=== PATIENT | male | born 1985 | race Caucasian/White ===

== ENCOUNTER 2016-07-21 23:47 | Emergency (ER) | payer OTHER, SELFPAY ==
[~2016-07-21] VITALS: Ht 185.4 cm; Wt 86.2 kg
--- NOTE | 2016-07-22 01:40 | REPUSA ---
CLINICAL HISTORY: Neck pain. TECHNIQUE: Multiple axial images were obtained through the cervical spine. Images were also reconstru cted in coronal and sagittal planes. The study was performed without IV contrast. COMMENTS: There is no fracture or spondylolisthesis visualized. The paraspinal soft tissues are unremarkable. T here are no lytic or blastic lesions. Straightening of cervical lordosis is seen, suggesting muscular spasm. There is evidence of minimal m ultilevel disk disease, demonstrated by minimal osteophytosis and endplate sclerosis. No significant disk herniation is noted at any level. Canal and foramina remain patent. IMPRESSION: 1. No fracture or spondylolisthesis. 2. Straightening of cervical lordosis is seen, suggesting muscular spasm. 3. Minimal multilevel spondylosis. Thank you for your kind referral of this patient.
[2016-07-22 01:52] LABS: METHADONE URINE NEGATIVE (NEGATIVE)
[2016-07-22] MEDS ORDERED: KETOROLAC TROMETHAMINE 10 MG TAB PO ONE (02:00)
[2016-07-22 02:36] VITALS: BP 162/75
== END 2016-07-22 02:48 | disposition left against medical advice (07) ==
LOC: EDBD 23:47 → M ED 07-22 00:25
DX: F10.129 Alcohol abuse with intoxication, unspecified (principal); S00.93XA Contusion of unspecified part of head, initial encounter; W21.89XA Striking against or struck by other sports equipment, initial encounter; Y92.9 Unspecified place or not applicable; Y93.44 Activity, trampolining; Y99.9 Unspecified external cause status; Z88.6 Allergy status to analgesic agent
CPT/HCPCS: 70450; 72125; 80306; 99284; G0480

== ENCOUNTER 2016-09-10 15:31 | Emergency (ER) | payer OTHER, SELFPAY ==
[~2016-09-10] VITALS: Ht 185.4 cm; Wt 63.0 kg
[2016-09-10 18:03] VITALS: BP 164/75
--- NOTE | 2016-09-10 18:07 | REP ---
Left hand, complete: 09/10/2016. No prior study. Clinical History: Trauma. Pain mid left hand. Findings: There is an oblique fracture of the mid to proximal shaft of the third metacarpal with a cortex width displacement of distal fragment dorsally and towards the ulna. No angulation. There is no intra-articular component at the CMC joint. The other metacarpals, MCP joints, CMC joints, carpal bones, distal radius, ulna, and phalanges are all intact. Prominent soft tissue swelling dorsal wrist. Impression: 1. Oblique fracture mid to proximal shaft of the third metacarpal without intra-articular extension. Prominent soft tissue swelling. No other bony finding. Signed by Curtis Dumont MD 09/10/2016 09:26 P
== END 2016-09-10 18:20 | disposition home or self-care (01) ==
LOC: M ED 15:31
DX: S62.353A Nondisplaced fracture of shaft of third metacarpal bone, left hand, initial encounter for closed fracture (principal); W18.30XA Fall on same level, unspecified, initial encounter; Y92.830 Public park as the place of occurrence of the external cause; Y93.61 Activity, american tackle football; Y99.9 Unspecified external cause status; M41.9 Scoliosis, unspecified; F17.200 Nicotine dependence, unspecified, uncomplicated; Z88.6 Allergy status to analgesic agent

== ENCOUNTER 2020-11-02 03:36 | Inpatient (IN) | payer OTHER, SELFPAY ==
[2020-11-02] VITALS (7 sets, daily range): BP systolic 149–158; BP diastolic 90–95
[~2020-11-02] VITALS: Ht 185.4 cm; Wt 97.6 kg
[2020-11-02] MEDS ORDERED: ONDANSETRON 4MG/2ML VIAL IV ONE (04:10)
[2020-11-02] MEDS ORDERED: NS 1,000 ML IV ONE ×2 (04:10→06:30)
[2020-11-02] MEDS ORDERED: ISOVUE-370 76% 100ML VIAL As Ordered ONE (04:26)
[2020-11-02 04:35] LABS: BASO # 0.1 10^3/uL (0.0-0.2); BASO % 1.2 % (0.0-1.0); EOS # 0.6 10^3/uL (0.0-0.5); EOS % 5.5 % (0.0-3.0); HEMATOCRIT 53.5 % (42.0-52.0); LYMPH # 4.2 10^3/uL (1.5-5.0); LYMPH % 40.8 % (24.0-44.0); MEAN CORPUSCULAR HEMOGLOBIN 33.2 pg (27.0-33.0); MEAN CORPUSCULAR HGB CONC 35.5 g/dl (32.0-36.5); MEAN CORPUSCULAR VOLUME 93.5 fl (80.0-96.0); MONO # 0.6 10^3/uL (0.0-0.8); NEUTROPHILS # 4.7 10^3/uL (1.5-8.5); NEUTROPHILS % 46.3 % (36.0-66.0); PLATELET COUNT, AUTOMATED 245 10^3/uL (150-450); RED BLOOD COUNT 5.72 10^6/uL (4.30-6.10); WHITE BLOOD COUNT 10.2 10^3/uL (4.0-10.0)
[2020-11-02] MEDS: MORPHINE 4 MG/ML 1ML VIAL/SYRINGE (J2270) IV PRN ×2 (04:41→05:42)
--- NOTE | 2020-11-02 04:54 | REPVR ---
PROCEDURE INFORMATION: Exam: XR Chest Exam date and time: 11/02/2020 4:32 AM Age: 35 years old Clinical indication: Cough TECHNIQUE: Imaging protocol: XR of the chest. Views: 1 view. COMPARISON: CT Spine,cervical w/o contrast 07/22/2016 12:51 AM FINDINGS: Lungs: Unremarkable. No consolidation. Pleural spaces: Unremarkable. No pleural effusion. No pneumothorax. Heart/Mediastinum: Unremarkable. No cardiomegaly. Bones/joints: Unremarkable. IMPRESSION: No acute findings. Electronically signed by: Trent Rodgers On 11/02/2020 04:54:00 AM
[2020-11-02 04:59] LABS: ALBUMIN 3.9 GM/DL (3.2-5.2); BILIRUBIN,DIRECT 0.2 MG/DL (0.0-0.2); BILIRUBIN,TOTAL 0.5 MG/DL (0.2-1.0); TOTAL PROTEIN 7.4 GM/DL (6.4-8.2)
--- NOTE | 2020-11-02 05:28 | REPVR ---
PROCEDURE INFORMATION: Exam: CT Abdomen And Pelvis With Contrast Exam date and time: 11/02/2020 4:09 AM Age: 35 years old Clinical indication: Pain and injury or trauma; Fall; Blunt; Luq; Abdominal pain; Flank; Left; Additional info: Left sided abd pain TECHNIQUE: Imaging protocol: Computed tomography of the abdomen and pelvis with contrast. Radiation optimization: All CT scans at this facility use at least one of these dose optimization techniques: automated exposure control; mA and/or kV adjustment per patient size (includes targeted exams where dose is matched to clinical indication); or iterative reconstruction. Contrast material: ISO; Contrast volume: 100 ml; Contrast route: INTRAVENOUS (IV); COMPARISON: CR Hip,AP,LAT to include Pelvis 04/03/2015 1:06 PM FINDINGS: Liver: Hepatomegaly and steatosis. Gallbladder and bile ducts: Normal. No calcified stones. No ductal dilation. Pancreas: Normal. No ductal dilation. Spleen: Normal. No splenomegaly. Adrenal glands: Normal. No mass. Kidneys and ureters: Normal. No hydronephrosis. Stomach and bowel: Unremarkable. No obstruction. No mucosal thickening. Appendix: No evidence of appendicitis. Intraperitoneal space: Unremarkable. No free air. No significant fluid collection. Vasculature: Atherosclerotic disease of the abdominal aorta. Lymph nodes: Unremarkable. No enlarged lymph nodes. Urinary bladder: Distended urinary bladder. Reproductive: Unremarkable as visualized. Bones/joints: Mild anterolisthesis of L5 on S1 secondary to bilateral L5 pars interarticularis defects. Mild multilevel degenerative disease and facet arthropathy of the lumbar spine. Mild levoscoliosis. Soft tissues: Unremarkable. IMPRESSION: No acute fractures or evidence of solid organ injury. Hepatomegaly and steatosis. Electronically signed by: Trent Rodgers On 11/02/2020 05:28:28 AM
[2020-11-02] MEDS ORDERED: LORazepam 2 MG TAB PO PRN ×2 (06:40→08:25)
[2020-11-02] MEDS ORDERED: THIAMINE 100 MG TAB PO SCH (06:41)
[2020-11-02] MEDS ORDERED: ONDANSETRON 4MG/2ML VIAL IV PRN (07:50)
[2020-11-02] MEDS ORDERED: MULTIVITAMINS/MINERALS THERAP 1 TAB PO SCH (09:00)
[2020-11-02] MEDS ORDERED: OXAZEPAM 10 MG CAP PO SCH (09:00)
[2020-11-02] MEDS ORDERED: FOLIC ACID 1 MG TAB PO SCH (09:00)
[2020-11-02] MEDS ORDERED: MULTIVITAMIN -ADULT INJECTION 10 ML, THIAMINE INJection 100 MG, FOLIC ACID 1 MG in NS 1... IV SCH (09:00)
[2020-11-02 09:22] LABS: RSV AMPLIFICATION NEGATIVE (NEGATIVE)
[2020-11-02] MEDS ORDERED: HOME MED LIST COMPLETE! XX SCH (09:40)
[2020-11-02] MEDS: PANTOPRAZOLE 40MG VIAL (C9113 PER 1) IV SCH ×2 (10:26→20:18)
[2020-11-02] MEDS: ENOXAPARIN 40MG/0.4ML SYRINGE (J1650 PER 10MG) SC SCH (10:26)
[2020-11-02] MEDS: LR 1,000 ML IV SCH ×2 (11:50→21:33)
--- NOTE | 2020-11-02 12:05 | HPEPDOC ---
General Date of Admission Nov 02, 2020 at 07:46 Date of Service: Nov 02, 2020 Chief Complaint The patient is a 35-year-old male admitted with a reason for visit of Acute Alcoholic Pancreatitis, Alcohol Intoxication. Source: Patient History of Present Illness 35-year-old male heavy alcohol drinker presented to the emergency room with 2 days history of abdominal pain. Last night while he went to the bathroom he had such a severe episode of pain that he almost passed out that is why his girlfriend called the ambulance and made him come to the emergency room. Patient denies any recent falls or trauma or any fights. The pain is located in the left flank and lower lateral chest wall, sharp aching in nature feels like he got punched, rates the pain as 8 /10 in intensity without any radiation. Work-up in the ED showed mild elevation of lipase of 675. His alcohol level was 0.242. He had mild transaminitis, and a creatinine of 1.5. His hemoglobin was 19. He had a CT scan of the abdomen and pelvis was negative for any acute events. It did show hepatomegaly and steatosis. Patient was admitted for possible alcoholic pancreatitis versus musculoskeletal pain with the severe dehydration and KARLENE. 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 Dyspnea, Lt Headedness Gastrointestinal: Reports: Abdominal Pain; Denies: Nausea, Vomiting, Diarrhea Genitourinary: Denies: Dysuria, Frequency, Incontinence, Retention Hematologic: Denies: Bruising, Bleeding Excessively Neurological: Denies: Weakness, Numbness, Change in speech, Confusion Physical Examination General Exam: Positive: Alert, Cooperative, No Acute Distress Eye Exam: Positive: PERRLA, Conjunctiva & lids normal, EOMI; Negative: Sclera icteric ENT Exam: Positive: Atraumatic, Mucous membr. moist/pink, Pharynx Normal Neck Exam: Positive: Supple; Negative: JVD, thyromegaly Chest Exam: Positive: Clear to auscultation, Normal air movement Heart Exam: Positive: Rate Normal, Regular Rhythm, Normal S1, Normal S2; Negative: Murmurs, Rubs Abdomen Exam: Positive: Normal bowel sounds, Soft, Tenderness (Left upper quadrant and left lateral lower chest wall); Negative: Hepatospenomegaly Extremity Exam: Negative: Clubbing, Cyanosis, Edema Skin Exam: Positive: Nl turgor and temperature; Negative: Breakdown, Lesion Neuro Exam: Positive: Other (Tremors) Psych Exam: Positive: Memory Intact, Oriented x 3 Vital Signs Vital Signs Date Time Temp Pulse Resp B/P (MAP) Pulse Ox O2 Delivery O2 Flow Rate FiO2 11/02/20 10:30 98.4 98 18 158/90 (112) 95 Room Air Laboratory Data Labs 24H Laboratory Tests 2 11/02/20 04:15: Immature Granulocyte % (Auto) 0.2, Neutrophils (%) (Auto) 46.3, Lymphocytes (%) (Auto) 40.8, Monocytes (%) (Auto) 6.0, Eosinophils (%) (Auto) 5.5H, Basophils (%) (Auto) 1.2H, Neutrophils # (Auto) 4.7, Lymphocytes # (Auto) 4.2, Monocytes # (Auto) 0.6, Eosinophils # (Auto) 0.6H, Basophils # (Auto) 0.1, Nucleated Red Blood Cells % (auto) 0.0, Lactic Acid Level 2.9*H, Total Bilirubin 0.5, Direct Bilirubin 0.2, Aspartate Amino Transf (AST/SGOT) 58H, Alanine Aminotransferase (ALT/SGPT) 117H, Alkaline Phosphatase 93, Total Protein 7.4, Albumin 3.9, Albumin/Globulin Ratio 1.1, Lipase 676H, Ethyl Alcohol Level 0.242H 11/02/20 08:08: Coronavirus (COVID-19)(PCR) NEGATIVE, Influenza Type A (RT-PCR) NEGATIVE, Influenza Type B (RT-PCR) NEGATIVE, Respiratory Syncytial Virus (PCR) NEGATIVE 11/02/20 09:21: Lactic Acid Followup at 4 Hours 1.6 CBC/BMP Laboratory Tests 11/02/20 04:15 Assessment/Plan 35-year-old male heavy alcohol drinker presented to the emergency room with 2 days history of abdominal pain. Last night while he went to the bathroom he had such a severe episode of pain that he almost passed out that is why his girlfriend called the ambulance and made him come to the emergency room. Patie nt denies any recent falls or trauma or any fights. The pain is located in the left flank and lower lateral chest wall, sharp aching in nature feels like he got punched, rates the pain as 8 /10 in intensity without any radiation. Work- up in the ED showed mild elevation of lipase of 675. His alcohol level was 0.242. He had mild transaminitis, and a creatinine of 1.5. His hemoglobin was 19. He had a CT scan of the abdomen and pelvis was negative for any acute events. It did show hepatomegaly and steatosis. Patient was admitted for possible alcoholic pancreatitis versus musculoskeletal pain with the severe dehydration and KARLENE. Abdominal pain/lower chest wall pain Acute pancreatitis versus musculoskeletal pain Pain control with tramadol IV fluid, pantoprazole, clear liquid diet Advance diet as tolerated Alcohol intoxication Will place the patient on Serax and CIWA protocol Will give banana bag daily Dehydration with lactic acidosis Hemoglobin of 19. Due to alcohol use Will give IV fluid KARLENE Creatinine of 1.5 Due to dehydration Continue IV fluids Plan / VTE VTE Prophylaxis Ordered?: Yes Danitza White MD Nov 02, 2020 12:05
[2020-11-02] MEDS: traMADol 50 MG TAB PO PRN ×2 (12:58→21:34)
--- NOTE | 2020-11-02 13:24 | REP ---
INDICATION: Left lower lateral chest wall pain. NO HISTORY OF TRAUMA COMPARISON: None. TECHNIQUE: Four views FINDINGS: There is no evidence of an acute fracture or destructive osseous lesion. IMPRESSION: Negative exam <Electronically signed by Chance John > 11/02/20 [id number]
[2020-11-02] MEDS: OXAZEPAM 10 MG CAP PO SCH ×2 (16:45→20:18)
[2020-11-03] VITALS (7 sets, daily range): BP systolic 149–202; BP diastolic 92–138
[2020-11-03] MEDS ORDERED: amLODIPine 5 MG TAB PO ONE (04:30)
[2020-11-03 05:17] LABS: BASO # 0.1 10^3/uL (0.0-0.2); BASO % 0.9 % (0.0-1.0); EOS # 0.5 10^3/uL (0.0-0.5); EOS % 5.2 % (0.0-3.0); HEMATOCRIT 51.4 % (42.0-52.0); HEMOGLOBIN 17.5 g/dl (13.5-17.5); LYMPH % 41.1 % (24.0-44.0); MEAN CORPUSCULAR HEMOGLOBIN 32.8 pg (27.0-33.0); MEAN CORPUSCULAR VOLUME 96.3 fl (80.0-96.0); MONO # 0.7 10^3/uL (0.0-0.8); MONO % 7.5 % (2.0-8.0); NEUTROPHILS # 4.3 10^3/uL (1.5-8.5); NEUTROPHILS % 45.1 % (36.0-66.0); PLATELET COUNT, AUTOMATED 230 10^3/uL (150-450); RED BLOOD COUNT 5.34 10^6/uL (4.30-6.10); WHITE BLOOD COUNT 9.6 10^3/uL (4.0-10.0)
[2020-11-03 05:46] LABS: ALBUMIN 3.7 GM/DL (3.2-5.2); ALT/SGPT 102 U/L (12-78); BILIRUBIN,DIRECT 0.2 MG/DL (0.0-0.2); BILIRUBIN,TOTAL 0.9 MG/DL (0.2-1.0); BLOOD UREA NITROGEN 12 MG/DL (7-18); CALCIUM LEVEL 8.7 MG/DL (8.5-10.1); CARBON DIOXIDE LEVEL 28 MEQ/L (21-32); CHLORIDE LEVEL 103 MEQ/L (98-107); CREATININE FOR GFR 0.97 MG/DL (0.70-1.30); GLOMERULAR FILTRATION RATE > 60.0 (>60); GLUCOSE, FASTING 89 MG/DL (70-100); LIPASE 169 U/L (73-393); POTASSIUM SERUM 4.1 MEQ/L (3.5-5.1); SODIUM LEVEL 138 MEQ/L (136-145); TOTAL PROTEIN 6.8 GM/DL (6.4-8.2)
[2020-11-03] MEDS ORDERED: hydrALAZINE 20MG/ML 1ML VIAL (J0360 PER 20MG) IV ONE (06:35)
[2020-11-03] MEDS ORDERED: MULTIVITAMIN -ADULT INJECTION 10 ML, THIAMINE INJection 100 MG, FOLIC ACID 1 MG in NS 1... IV SCH ×2 (06:40→11:00)
[2020-11-03] MEDS ORDERED: **hydrALAZINE** 10 MG TAB PO ONE (06:45)
[2020-11-03] MEDS ORDERED: cloNIDine 0.1MG TABLET PO ONE (08:30)
[2020-11-03] MEDS: PANTOPRAZOLE 40MG VIAL (C9113 PER 1) IV SCH ×2 (08:48→20:13)
[2020-11-03] MEDS: OXAZEPAM 10 MG CAP PO SCH ×3 (08:48→20:14)
[2020-11-03] MEDS: ENOXAPARIN 40MG/0.4ML SYRINGE (J1650 PER 10MG) SC SCH (08:48)
[2020-11-03] MEDS ORDERED: amLODIPine 5 MG TAB PO SCH (09:00)
[2020-11-03] MEDS: **hydrALAZINE HCL** 25 MG TAB PO SCH ×4 (09:02→23:36)
[2020-11-03] MEDS: traMADol 50 MG TAB PO PRN ×2 (09:03→20:15)
[2020-11-03 13:41] LABS: HEPATITIS B SURFACE ANTIGEN NEGATIVE (NEGATIVE)
[2020-11-03 14:09] LABS: HEPATITIS B CORE ANTIBODY IGM NEGATIVE (NEGATIVE); HEPATITIS C VIRUS ABY INDEX 0.1 INDEX (<0.8)
--- NOTE | 2020-11-03 17:17 | IPNPDOC ---
Subjective Date Seen The patient was seen on 11/03/20. Subjective Chief Complaint/HPI BP uncontrolled this morning. Continues ot have left flank and left lateral lower chest wall pain however has been tolerating regular diet. Have started on multiple BP meds for control. No signs of alcohol withdrawal. Objective Physical Examination General Exam: Positive: Alert, Cooperative, No Acute Distress Eye Exam: Positive: PERRLA, Conjunctiva & lids normal, EOMI; Negative: Sclera icteric ENT Exam: Positive: Atraumatic, Mucous membr. moist/pink, Pharynx Normal Neck Exam: Positive: Supple; Negative: JVD, thyromegaly Chest Exam: Positive: Clear to auscultation, Normal air movement Heart Exam: Positive: Rate Normal, Regular Rhythm, Normal S1, Normal S2; Negative: Murmurs, Rubs Abdomen Exam: Positive: Normal bowel sounds, Soft, Tenderness (Left upper quadrant and left lateral lower chest wall); Negative: Hepatospenomegaly Extremity Exam: Negative: Clubbing, Cyanosis, Edema Skin Exam: Positive: Nl turgor and temperature; Negative: Breakdown, Lesion Neuro Exam: Positive: Other (Tremors) Psych Exam: Positive: Memory Intact, Oriented x 3 Assessment /Plan Assessment 35-year-old male heavy alcohol drinker presented to the emergency room with 2 days history of abdominal pain. Last night while he went to the bathroom he had such a severe episode of pain that he almost passed out that is why his girlfriend called the ambulance and made him come to the emergency room. Patient denies any recent falls or trauma or any fights. The pain is located in the left flank and lower lateral chest wall, sharp aching in nature feels like he got punched, rates the pain as 8 /10 in intensity without any radiation. Work-up in the ED showed mild elevation of lipase of 675. His alcohol level was 0.242. He had mild transaminitis, and a creatinine of 1.5. His hemoglobin was 19. He had a CT scan of the abdomen and pelvis was negative for any acute events. It did show hepatomegaly and steatosis. Patient was admitted for p ossible alcoholic pancreatitis versus musculoskeletal pain with the severe dehydration and KARLENE. Abdominal pain/lower chest wall pain Acute pancreatitis versus musculoskeletal pain Pain control with tramadol IV fluid, pantoprazole, tolerating regular diet Uncontrolled HTN will start on amlodipine, lisinopril and hydralazine. Alcohol intoxication on Serax and CIWA protocol Will give banana bag daily Dehydration with lactic acidosis Hemoglobin of 19. Due to alcohol use now improving KARLENE Creatinine of 1.5 Due to dehydration now resolved Transaminitis due to alcohol abuse hepatitis panel is negative Plan/VTE VTE Prophylaxis Ordered?: Yes VS, I&O, 24H, Fishbone Vital Signs/I&O Vital Signs Date Time Temp Pulse Resp B/P (MAP) Pulse Ox O2 Delivery O2 Flow Rate FiO2 11/03/20 14:00 97.4 72 18 149/95 (113) 97 Room Air I&O- Last 24 Hours up to 6 AM 11/03/20 07:00 Intake Total 1000 ml Output Total 0 ml Balance 1000 ml Laboratory Data 24H LABS Laboratory Tests 2 11/03/20 04:33: Immature Granulocyte % (Auto) 0.2, Neutrophils (%) (Auto) 45.1, Lymphocytes (%) (Auto) 41.1, Monocytes (%) (Auto) 7.5, Eosinophils (%) (Auto) 5.2H, Basophils (%) (Auto) 0.9, Neutrophils # (Auto) 4.3, Lymphocytes # (Auto) 4.0, Monocytes # (Auto) 0.7, Eosinophils # (Auto) 0.5, Basophils # (Auto) 0.1, Nucleated Red Blood Cells % (auto) 0.0, Anion Gap 7L, Glomerular Filtration Rate > 60.0, Calcium Level 8.7, Total Bilirubin 0.9#, Direct Bilirubin 0.2, Aspartate Amino Transf (AST/SGOT) 42H, Alanine Aminotransferase (ALT/SGPT) 102H, Alkaline Phosphatase 88, Total Protein 6.8, Albumin 3.7, Albumin/Globulin Ratio 1.2, Lip ase 169, Hepatitis B Surface Antigen NEGATIVE, Hepatitis B Core IgM Antibody NEGATIVE, Hepatitis C Antibody Index 0.1 11/03/20 11:48: Lab Scanned Report Miscellaneous Lab 11/03/20 12:22: Methicillin-Resist S.aureus DNA PCR NOT DETECTED CBC/BMP Laboratory Tests 11/03/20 04:33 Danitza White MD Nov 03, 2020 17:17
[2020-11-04 04:57] VITALS: BP 178/96
[2020-11-04] MEDS: **hydrALAZINE HCL** 25 MG TAB PO SCH (05:04)
[2020-11-04] MEDS: traMADol 50 MG TAB PO PRN (05:07)
[2020-11-04 05:25] LABS: BASO # 0.1 10^3/uL (0.0-0.2); BASO % 0.8 % (0.0-1.0); EOS # 0.5 10^3/uL (0.0-0.5); EOS % 6.1 % (0.0-3.0); HEMATOCRIT 49.7 % (42.0-52.0); HEMOGLOBIN 17.4 g/dl (13.5-17.5); LYMPH # 3.5 10^3/uL (1.5-5.0); LYMPH % 40.5 % (24.0-44.0); MEAN CORPUSCULAR HEMOGLOBIN 32.9 pg (27.0-33.0); MONO # 0.7 10^3/uL (0.0-0.8); MONO % 8.2 % (2.0-8.0); NEUTROPHILS # 3.9 10^3/uL (1.5-8.5); NEUTROPHILS % 44.2 % (36.0-66.0); PLATELET COUNT, AUTOMATED 212 10^3/uL (150-450); RED BLOOD COUNT 5.29 10^6/uL (4.30-6.10); WHITE BLOOD COUNT 8.7 10^3/uL (4.0-10.0)
[2020-11-04 05:47] LABS: BLOOD UREA NITROGEN 11 MG/DL (7-18); CALCIUM LEVEL 8.9 MG/DL (8.5-10.1); CARBON DIOXIDE LEVEL 30 MEQ/L (21-32); CHLORIDE LEVEL 99 MEQ/L (98-107); CREATININE FOR GFR 1.01 MG/DL (0.70-1.30); GLOMERULAR FILTRATION RATE > 60.0 (>60); GLUCOSE, FASTING 86 MG/DL (70-100); LIPASE 141 U/L (73-393); POTASSIUM SERUM 4.2 MEQ/L (3.5-5.1); SODIUM LEVEL 139 MEQ/L (136-145)
[2020-11-04 05:53] VITALS: BP 178/96
[2020-11-04 08:47] VITALS: BP 169/103
[2020-11-04] MEDS: OXAZEPAM 10 MG CAP PO SCH (08:47)
[2020-11-04] MEDS: ENOXAPARIN 40MG/0.4ML SYRINGE (J1650 PER 10MG) SC SCH (08:48)
[2020-11-04] MEDS: PANTOPRAZOLE 40MG VIAL (C9113 PER 1) IV SCH (08:48)
[2020-11-04] MEDS ORDERED: amLODIPine 5 MG TAB PO SCH (09:00)
[2020-11-04] MEDS ORDERED: FOLI1TAB11 PO (09:57)
[2020-11-04] MEDS ORDERED: AMLO1TAB24 PO (09:57)
[2020-11-04] MEDS ORDERED: THIA100T7 PO (09:57)
[2020-11-04] MEDS ORDERED: LISI20TA33 PO (09:57)
[2020-11-04 11:27] LABS: ALBUMIN 3.5 GM/DL (3.2-5.2); ALT/SGPT 106 U/L (12-78); BILIRUBIN,DIRECT 0.3 MG/DL (0.0-0.2); TOTAL PROTEIN 6.8 GM/DL (6.4-8.2)
--- NOTE | 2020-11-04 12:15 | DS.PDOC ---
Discharge Summary General Date of Admission Nov 02, 2020 at 07:46 Date of Discharge 11/04/20 Discharge Summary PROCEDURES PERFORMED DURING STAY: [None]. DISCHARGE DIAGNOSES: Alcoholic pancreatitis Uncontrolled hypertension Dehydration with lactic acidosis Alcohol intoxication KARLENE Transaminitis COMPLICATIONS/CHIEF COMPLAINT: Acute Alcoholic Pancreatitis, Alcohol Intoxication. HOSPITAL COURSE: 35-year-old male heavy alcohol drinker presented to the emergency room with 2 days history of abdominal pain. Last night while he went to the bathroom he had such a severe episode of pain that he almost passed out that is why his girlfriend called the ambulance and made him come to the emergency room. Patient denies any recent falls or trauma or any fights. The pain is located in the left flank and lower lateral chest wall, sharp aching in nature feels like he got punched, rates the pain as 8 /10 in intensity without any radiation. Work-up in the ED showed mild elevation of lipase of 675. His alcohol level was 0.242. He had mild transaminitis, and a creatinine of 1.5. His hemoglobin was 19. He had a CT scan of the abdomen and pelvis was negative for any acute events. It did show hepatomegaly and steatosis. Patient was admitted for possible alcoholic pancreatitis versus musculoskeletal pain with the severe dehydration and KARLENE. Abdominal pain/lower chest wall pain Acute pancreatitis versus musculoskeletal pain Pain control with tramadol IV fluid, pantoprazole, tolerating regular diet Uncontrolled HTN will start on amlodipine, lisinopril and hydralazine. Alcohol intoxication on Serax and CIWA protocol Will give banana bag daily Dehydration with lactic acidosis Hemoglobin of 19. Due to alcohol use now improving KARLENE Creatinine of 1.5 Due to dehydration now resolved Transaminitis due to alcohol abuse hepatitis panel is negative DISCHARGE MEDICATIONS: Please see below. ALLERGIES: Please see below. PHYSICAL EXAMINATION ON DISCHARGE: VITAL SIGNS: Please see below. General Exam: Positive: Alert, Cooperative, No Acute Distress Eye Exam: Positive: PERRLA, Conjunctiva & lids normal, EOMI; Negative: Sclera icteric ENT Exam: Positive: Atraumatic, Mucous membr. moist/pink, Pharynx Normal Neck Exam: Positive: Supple; Negative: JVD, thyromegaly Chest Exam: Positive: Clear to auscultation, Normal air movement Heart Exam: Positive: Rate Normal, Regular Rhythm, Normal S1, Normal S2; Negative: Murmurs, Rubs Abdomen Exam: Positive: Normal bowel sounds, Soft, Tenderness (Left upper quadrant and left lateral lower chest wall); Negative: Hepatosplenomegaly Extremity Exam: Negative: Clubbing, Cyanosis, Edema Skin Exam: Positive: Nl turgor and temperature; Negative: Breakdown, Lesion Neuro Exam: Positive: Other (Tremors) Psych Exam: Positive: Memory Intact, Oriented x 3 LABORATORY DATA: Please see below. ACTIVITY: [As tolerated]. DIET: Low-fat low-cholesterol DISPOSITION: Home, Self-Care. DISCHARGE INSTRUCTIONS: PMD in 1 week Advised to abstain from alcohol for at least 2 weeks. Advised to cut down on his alcohol use DISCHARGE CONDITION: [Stable]. TIME SPENT ON DISCHARGE: 35 minutes. Vital Signs/I&Os Vital Signs Date Time Temp Pulse Resp B/P (MAP) Pulse Ox O2 Delivery O2 Flow Rate FiO2 11/04/20 08:47 82 169/103 11/04/20 05:37 16 11/04/20 04:57 98.4 99 Room Air l I&O- Last 24 Hours up to 6 AM 11/04/20 05:59 Intake Total 1991.2 ml Balance 1991.2 ml Laboratory Data Labs 24H Laboratory Tests 2 11/03/20 12:22: Methicillin-Resist S.aureus DNA PCR NOT DETECTED 11/04/20 04:45: Immature Granulocyte % (Auto) 0.2, Neutrophils (%) (Auto) 44.2, Lymphocytes (%) (Auto) 40.5, Monocytes (%) (Auto) 8.2H, Eosinophils (%) (Auto) 6.1H, Basophils (%) (Auto) 0.8, Neutrophils # (Auto) 3.9, Lymphocytes # (Auto) 3.5, Monocytes # (Auto) 0.7, Eosinophils # (Auto) 0.5, Basophils # (Auto) 0.1, Nucleated Red Blood Cells % (auto) 0.0, Anion Gap 10, Glomerular Filtration Rate > 60.0, Calcium Level 8.9, Total Bilirubin 1.0, Direct Bilirubin 0.3H, Aspartate Amino Transf (AST/SGOT) 48H, Alanine Aminotransferase (ALT/SGPT) 106H, Alkaline Phosphatase 84, Total Protein 6.8, Albumin 3.5, Albumin/Globulin Ratio 1.1, Lipase 141 CBC/BMP Laboratory Tests 11/04/20 04:45 Discharge Medications Scheduled Amlodipine Besylate (Amlodipine Besylate) 5 Mg Tablet, 10 MG PO DAILY Folic Acid (Folic Acid) 1 Mg Tablet, 1 TAB PO DAILY Lisinopril (Lisinopril) 20 Mg Tablet, 20 MG PO QHS Thiamine HCl (Thiamine HCl) 100 Mg Tablet, 1 TAB PO DAILY Allergies Coded Allergies: aspirin (Verified Allergy, Mild, DIZZY, 11/02/20) Danitza White MD Nov 04, 2020 12:15
== END 2020-11-04 11:30 | disposition home or self-care (01) | DRG 282 ==
LOC: M ED 03:36 → EEVIPCON 07:46 → M ED INP 07:46 → ENRESERV 09:50 → M MS5PR 09:52
PROVIDERS: ADMIT Internal Medicine Nephrology; ATTEND Internal Medicine Nephrology
DX: K85.20 Alcohol induced acute pancreatitis without necrosis or infection (principal); N17.9 Acute kidney failure, unspecified; E87.2 Acidosis; I10 Essential (primary) hypertension; E86.0 Dehydration; F10.229 Alcohol dependence with intoxication, unspecified; Z79.899 Other long term (current) drug therapy; Z88.6 Allergy status to analgesic agent; K21.9 Gastro-esophageal reflux disease without esophagitis

== ENCOUNTER → 2022-03-19 | Outpatient (CLI) | payer OTHER ==
[~2022-03-19] MED LIST: AMLO1TAB24 PO; FOLI1TAB11 PO; LISI20TA33 PO; THIA100T7 PO
[2022-03-19 16:48] LABS: HEMATOCRIT 54.6 % (42.0-52.0); HEMOGLOBIN 18.3 g/dl (13.5-17.5); MEAN CORPUSCULAR HEMOGLOBIN 33.1 pg (27.0-33.0); MEAN CORPUSCULAR HGB CONC 33.5 g/dl (32.0-36.5); MEAN CORPUSCULAR VOLUME 98.7 fl (80.0-96.0); PLATELET COUNT, AUTOMATED 296 10^3/uL (150-450); RED BLOOD COUNT 5.53 10^6/uL (4.30-6.10); WHITE BLOOD COUNT 10.1 10^3/uL (4.0-10.0)
[2022-03-19 16:54] LABS: LIPASE 40 U/L (12-53)
[2022-03-19 16:55] LABS: AMYLASE 71 U/L (30-118)
[2022-03-19 16:56] LABS: ALBUMIN 4.1 G/DL (3.2-5.2); ALKALINE PHOSPHATASE 106 U/L (46-116); ALT/SGPT 69 U/L (7.0-40); AST/SGOT 42 U/L (<34); BILIRUBIN,TOTAL 1.4 MG/DL (0.3-1.2); BLOOD UREA NITROGEN 18 MG/DL (9-23); CALCIUM LEVEL 9.6 MG/DL (8.5-10.1); CARBON DIOXIDE LEVEL 29 MMOL/L (20-31); CHLORIDE LEVEL 100 MMOL/L (98-107); CREATININE FOR GFR 1.01 MG/DL (0.70-1.30); GLOMERULAR FILTRATION RATE > 60.0 (>60); GLUCOSE, FASTING 102 MG/DL (60-100); POTASSIUM SERUM 4.2 MMOL/L (3.5-5.1); SODIUM LEVEL 136 MMOL/L (136-145); TOTAL PROTEIN 7.5 G/DL (5.7-8.2)
== END ==
LOC: M WUC 13:07
PROVIDERS: ATTEND Nurse Practitioner Adult Health
DX: I10 Essential (primary) hypertension (principal); K85.20 Alcohol induced acute pancreatitis without necrosis or infection

== ENCOUNTER 2022-04-25 03:16 | Emergency (ER) | payer OTHER ==
[2022-04-25 04:12] LABS: BASO # 0.1 10^3/uL (0.0-0.2); EOS # 0.4 10^3/uL (0.0-0.5); EOS % 3.3 % (0.0-3.0); HEMATOCRIT 57.5 % (42.0-52.0); HEMOGLOBIN 19.5 g/dl (13.5-17.5); LYMPH # 4.9 10^3/uL (1.5-5.0); LYMPH % 41.5 % (24.0-44.0); MEAN CORPUSCULAR HEMOGLOBIN 33.1 pg (27.0-33.0); MEAN CORPUSCULAR HGB CONC 33.9 g/dl (32.0-36.5); MEAN CORPUSCULAR VOLUME 97.5 fl (80.0-96.0); MONO # 0.8 10^3/uL (0.0-0.8); MONO % 7.2 % (2.0-8.0); NEUTROPHILS # 5.4 10^3/uL (1.5-8.5); NEUTROPHILS % 46.4 % (36.0-66.0); PLATELET COUNT, AUTOMATED 336 10^3/uL (150-450); WHITE BLOOD COUNT 11.7 10^3/uL (4.0-10.0)
[2022-04-25 04:28] LABS: PARTIAL THROMBOPLASTIN TIME 28.1 SECONDS (24.8-34.2); PROTHROMBIN TIME 13.4 SECONDS (12.5-14.5)
[2022-04-25 04:31] LABS: D-DIMER QUANT 323.87 ng/ml (<500)
[2022-04-25 04:33] LABS: FREE T4 1.32 NG/DL (0.89-1.76); THYROID STIMULATING HORMONE 1.786 uIU/ML (0.55-4.78)
[2022-04-25 04:39] LABS: BLOOD UREA NITROGEN 9 MG/DL (9-23); CALCIUM LEVEL 8.9 MG/DL (8.5-10.1); CARBON DIOXIDE LEVEL 23 MMOL/L (20-31); CHLORIDE LEVEL 100 MMOL/L (98-107); CREATININE FOR GFR 1.02 MG/DL (0.70-1.30); GLOMERULAR FILTRATION RATE > 60.0 (>60); GLUCOSE, FASTING 109 MG/DL (60-100); POTASSIUM SERUM 3.9 MMOL/L (3.5-5.1); SODIUM LEVEL 136 MMOL/L (136-145)
[2022-04-25 04:41] LABS: RSV AMPLIFICATION NEGATIVE (NEGATIVE)
[2022-04-25 05:10] LABS: AMPHETAMINES LEVEL URINE NEGATIVE (NEGATIVE); BARBITURATES URINE NEGATIVE (NEGATIVE); BENZODIAZEPINES URINE NEGATIVE (NEGATIVE); COCAINE METABOLITE URINE NEGATIVE (NEGATIVE); METHADONE URINE NEGATIVE (NEGATIVE); OPIATES URINE NEGATIVE (NEGATIVE); PHENCYCLIDINE URINE NEGATIVE (NEGATIVE)
[2022-04-25 05:11] LABS: CANNABINOIDS URINE POSITIVE (NEGATIVE)
[2022-04-25 05:56] VITALS: BP 136/84
== END 2022-04-25 05:58 | disposition home or self-care (01) ==
LOC: M ED 03:16 → EDBD 03:16 → M ED 05:58
DX: S00.03XA Contusion of scalp, initial encounter (principal); R55 Syncope and collapse; F10.129 Alcohol abuse with intoxication, unspecified; F12.10 Cannabis abuse, uncomplicated; R00.0 Tachycardia, unspecified; I45.10 Unspecified right bundle-branch block; I10 Essential (primary) hypertension; F17.200 Nicotine dependence, unspecified, uncomplicated; Z88.6 Allergy status to analgesic agent; Z79.811 Long term (current) use of aromatase inhibitors; Z79.899 Other long term (current) drug therapy

== ENCOUNTER 2022-07-13 21:32 | Emergency (ER) | payer MEDICAID, OTHER ==
[2022-07-13 22:20] LABS: BASO # 0.2 10^3/uL (0.0-0.2); BASO % 1.3 % (0.0-1.0); EOS # 0.4 10^3/uL (0.0-0.5); EOS % 3.3 % (0.0-3.0); HEMATOCRIT 59.5 % (42.0-52.0); LYMPH # 3.9 10^3/uL (1.5-5.0); LYMPH % 33.9 % (24.0-44.0); MEAN CORPUSCULAR HEMOGLOBIN 33.3 pg (27.0-33.0); MEAN CORPUSCULAR HGB CONC 34.5 g/dl (32.0-36.5); MEAN CORPUSCULAR VOLUME 96.6 fl (80.0-96.0); MONO # 1.2 10^3/uL (0.0-0.8); NEUTROPHILS # 5.9 10^3/uL (1.5-8.5); NEUTROPHILS % 51.1 % (36.0-66.0); PLATELET COUNT, AUTOMATED 268 10^3/uL (150-450); RED BLOOD COUNT 6.16 10^6/uL (4.30-6.10); WHITE BLOOD COUNT 11.5 10^3/uL (4.0-10.0)
[2022-07-13 22:31] LABS: HEMOGLOBIN 20.5 g/dl (13.5-17.5)
[2022-07-13] MEDS ORDERED: LISI20TA33 PO (22:36)
[2022-07-13] MEDS ORDERED: MONT10TA97 PO (22:36)
[2022-07-13] MEDS ORDERED: med rec comment (22:37)
[2022-07-13] MEDS ORDERED: HOME MED LIST COMPLETE! XX SCH (22:40)
[2022-07-13 22:46] LABS: ETHYL ALCOHOL (ETHANOL) 0.247 % (0.000-0.010)
[2022-07-13 22:47] LABS: ACETAMINOPHEN LEVEL < 2.0 UG/ML (10.0-20.0); SALICYLATE LEVEL < 3.0 MG/DL (<30)
[2022-07-13 22:48] LABS: ALBUMIN 4.7 G/DL (3.2-5.2); ALKALINE PHOSPHATASE 127 U/L (46-116); ALT/SGPT 102 U/L (7.0-40); AST/SGOT 61 U/L (<34); BILIRUBIN,DIRECT 0.4 MG/DL (<0.4); BILIRUBIN,TOTAL 1.1 MG/DL (0.3-1.2); BLOOD UREA NITROGEN 17 MG/DL (9-23); CALCIUM LEVEL 9.5 MG/DL (8.5-10.1); CARBON DIOXIDE LEVEL 20 MMOL/L (20-31); CHLORIDE LEVEL 104 MMOL/L (98-107); CREATININE FOR GFR 0.94 MG/DL (0.70-1.30); GLOMERULAR FILTRATION RATE > 60.0 (>60); GLUCOSE, FASTING 94 MG/DL (60-100); MAGNESIUM LEVEL 2.6 MG/DL (1.8-2.4); POTASSIUM SERUM 4.3 MMOL/L (3.5-5.1); SODIUM LEVEL 138 MMOL/L (136-145); TOTAL PROTEIN 8.2 G/DL (5.7-8.2)
[2022-07-13 22:49] LABS: THYROID STIMULATING HORMONE 0.701 uIU/ML (0.55-4.78)
[2022-07-13 22:50] LABS: FREE T4 1.36 NG/DL (0.89-1.76)
[2022-07-13 22:55] LABS: AMPHETAMINES LEVEL URINE NEGATIVE (NEGATIVE); BARBITURATES URINE NEGATIVE (NEGATIVE); BENZODIAZEPINES URINE NEGATIVE (NEGATIVE); COCAINE METABOLITE URINE NEGATIVE (NEGATIVE); METHADONE URINE NEGATIVE (NEGATIVE); OPIATES URINE NEGATIVE (NEGATIVE); PHENCYCLIDINE URINE NEGATIVE (NEGATIVE)
[2022-07-13] MEDS ORDERED: NS 2,860 ML in IV 1 EA IV ONE (22:55)
[2022-07-13 22:56] LABS: CANNABINOIDS URINE POSITIVE (NEGATIVE)
[2022-07-13 22:59] LABS: INR 0.87
[2022-07-13 23:00] LABS: PARTIAL THROMBOPLASTIN TIME 31.1 SECONDS (24.8-34.2)
[2022-07-13 23:18] LABS: RSV AMPLIFICATION NEGATIVE (NEGATIVE)
[2022-07-13] MEDS ORDERED: LORazepam 2 MG TAB PO PRN (23:50)
[2022-07-13] MEDS ORDERED: OLANZapine ORAL DISINTEGRATING TAB 5MG PO ONE (23:55)
[2022-07-14] MEDS: THIAMINE 100 MG TAB PO SCH ×2 (00:04→09:01)
[2022-07-14] MEDS ORDERED: FOLIC ACID 1MG TAB PO SCH (09:00)
[2022-07-14] MEDS ORDERED: MULTIVITAMINS/MINERALS THERAP 1 TAB PO SCH (09:00)
[2022-07-14 12:50] VITALS: BP 119/82
== END 2022-07-14 13:03 | disposition home or self-care (01) ==
LOC: EDBD 21:32 → M ED 21:32
DX: F10.129 Alcohol abuse with intoxication, unspecified (principal); R00.0 Tachycardia, unspecified; I10 Essential (primary) hypertension; K21.9 Gastro-esophageal reflux disease without esophagitis; F17.200 Nicotine dependence, unspecified, uncomplicated; F12.10 Cannabis abuse, uncomplicated; Z88.6 Allergy status to analgesic agent; Z79.811 Long term (current) use of aromatase inhibitors; Z79.899 Other long term (current) drug therapy

== ENCOUNTER 2023-01-06 06:27 | Emergency (ER) | payer OTHER ==
[~2023-01-06] VITALS: Ht 170.2 cm; Wt 75.0 kg
[~2023-01-06 06:27] MED LIST changes: +MONT10TA97 PO; +med rec comment
[2023-01-06] MEDS ORDERED: AMLO1TAB24 PO (07:38)
[2023-01-06] MEDS ORDERED: OMEP40CA5 PO (07:38)
[2023-01-06 08:30] LABS: MEAN CORPUSCULAR HEMOGLOBIN 34.9 pg (27.0-33.0); MEAN CORPUSCULAR HGB CONC 34.4 g/dl (32.0-36.5); MEAN CORPUSCULAR VOLUME 101.3 fl (80.0-96.0); PLATELET COUNT, AUTOMATED 231 10^3/uL (150-450); RED BLOOD COUNT 6.02 10^6/uL (4.30-6.10); WHITE BLOOD COUNT 11.4 10^3/uL (4.0-10.0)
[2023-01-06] MEDS ORDERED: MED REC IN PROGRESS XX SCH (08:35)
[2023-01-06 08:39] LABS: ETHYL ALCOHOL (ETHANOL) 0.095 % (0.000-0.010)
[2023-01-06 08:41] LABS: ALBUMIN 3.8 G/DL (3.2-5.2); ALKALINE PHOSPHATASE 100 U/L (46-116); ALT/SGPT 38 U/L (7.0-40); AST/SGOT 34 U/L (<34); BILIRUBIN,DIRECT 0.3 MG/DL (<0.4); BILIRUBIN,TOTAL 0.8 MG/DL (0.3-1.2); BLOOD UREA NITROGEN 14 MG/DL (9-23); CALCIUM LEVEL 9.3 MG/DL (8.5-10.1); CARBON DIOXIDE LEVEL 27 MMOL/L (20-31); CHLORIDE LEVEL 101 MMOL/L (98-107); CREATININE FOR GFR 0.76 MG/DL (0.70-1.30); GLOMERULAR FILTRATION RATE > 60.0 (>60); GLUCOSE, FASTING 113 MG/DL (60-100); POTASSIUM SERUM 3.9 MMOL/L (3.5-5.1); SALICYLATE LEVEL < 3.0 MG/DL (<30); SODIUM LEVEL 140 MMOL/L (136-145); TOTAL PROTEIN 6.8 G/DL (5.7-8.2)
[2023-01-06 08:43] LABS: THYROID STIMULATING HORMONE 1.114 uIU/ML (0.55-4.78)
[2023-01-06] MEDS ORDERED: HOME MED LIST COMPLETE! XX SCH (08:50)
[2023-01-06 08:54] LABS: AMPHETAMINES LEVEL URINE NEGATIVE (NEGATIVE); BARBITURATES URINE NEGATIVE (NEGATIVE); BENZODIAZEPINES URINE NEGATIVE (NEGATIVE); COCAINE METABOLITE URINE NEGATIVE (NEGATIVE); METHADONE URINE NEGATIVE (NEGATIVE); OPIATES URINE NEGATIVE (NEGATIVE); PHENCYCLIDINE URINE NEGATIVE (NEGATIVE)
[2023-01-06 08:55] LABS: CANNABINOIDS URINE POSITIVE (NEGATIVE)
[2023-01-06 10:54] VITALS: BP 153/94; TEMP 98.2; O2SAT 95
== END 2023-01-06 10:59 | disposition home or self-care (01) ==
LOC: M ED 06:27
DX: S20.219A Contusion of unspecified front wall of thorax, initial encounter (principal); W22.8XXA Striking against or struck by other objects, initial encounter; F10.129 Alcohol abuse with intoxication, unspecified; I10 Essential (primary) hypertension; F41.9 Anxiety disorder, unspecified; F12.10 Cannabis abuse, uncomplicated; F17.200 Nicotine dependence, unspecified, uncomplicated; K21.9 Gastro-esophageal reflux disease without esophagitis; R00.0 Tachycardia, unspecified; I45.10 Unspecified right bundle-branch block; I45.81 Long QT syndrome; Z88.6 Allergy status to analgesic agent; Z91.030 Bee allergy status; Z91.048 Other nonmedicinal substance allergy status; Z79.811 Long term (current) use of aromatase inhibitors; Z79.83 Long term (current) use of bisphosphonates; Z79.899 Other long term (current) drug therapy

== ENCOUNTER 2023-02-28 00:50 | Emergency (ER) | payer OTHER ==
[~2023-02-28] VITALS: Ht 185.4 cm; Wt 86.4 kg
[~2023-02-28 00:50] MED LIST changes: +OMEP40CA5 PO
[2023-02-28 01:18] LABS: IONIZED CALCIUM 4.7 MG/DL (4.5-5.3)
[2023-02-28 01:22] LABS: BASO # 0.1 10^3/uL (0.0-0.2); EOS # 0.4 10^3/uL (0.0-0.5); EOS % 3.3 % (0.0-3.0); HEMATOCRIT 62.9 % (42.0-52.0); LYMPH # 3.7 10^3/uL (1.5-5.0); LYMPH % 33.2 % (24.0-44.0); MEAN CORPUSCULAR HGB CONC 34.8 g/dl (32.0-36.5); MEAN CORPUSCULAR VOLUME 103.5 fl (80.0-96.0); MONO # 0.8 10^3/uL (0.0-0.8); MONO % 6.9 % (2.0-8.0); NEUTROPHILS # 6.2 10^3/uL (1.5-8.5); NEUTROPHILS % 55.2 % (36.0-66.0); PLATELET COUNT, AUTOMATED 365 10^3/uL (150-450); RED BLOOD COUNT 6.08 10^6/uL (4.30-6.10); WHITE BLOOD COUNT 11.2 10^3/uL (4.0-10.0)
[2023-02-28 01:28] LABS: HEMOGLOBIN 21.9 g/dl (13.5-17.5)
[2023-02-28 01:43] LABS: ETHYL ALCOHOL (ETHANOL) 0.224 % (0.000-0.010)
[2023-02-28 01:45] LABS: ALBUMIN 4.5 G/DL (3.2-5.2); ALKALINE PHOSPHATASE 153 U/L (46-116); ALT/SGPT 28 U/L (7.0-40); AST/SGOT 23 U/L (<34); BILIRUBIN,DIRECT 0.3 MG/DL (<0.4); BILIRUBIN,TOTAL 0.8 MG/DL (0.3-1.2); BLOOD UREA NITROGEN 8 MG/DL (9-23); CALCIUM LEVEL 9.9 MG/DL (8.5-10.1); CARBON DIOXIDE LEVEL 29 MMOL/L (20-31); CHLORIDE LEVEL 102 MMOL/L (98-107); CREATININE FOR GFR 0.94 MG/DL (0.70-1.30); GLOMERULAR FILTRATION RATE > 60.0 (>60); GLUCOSE, FASTING 91 MG/DL (60-100); MAGNESIUM LEVEL 2.4 MG/DL (1.8-2.4); PHOSPHORUS LEVEL 4.3 MG/DL (2.5-4.9); POTASSIUM SERUM 5.1 MMOL/L (3.5-5.1); SODIUM LEVEL 138 MMOL/L (136-145); TOTAL PROTEIN 8.1 G/DL (5.7-8.2)
[2023-02-28] MEDS ORDERED: NS 1,000 ML IV ONE (01:50)
[2023-02-28] MEDS ORDERED: ISOVUE-370 76% 100ML VIAL As Ordered ONE (01:53)
[2023-02-28] MEDS ORDERED: KEPP1TAB PO (03:29)
[2023-02-28] MEDS ORDERED: levETIRAcetam INJection 1,000 MG in D5W 100 ML IV ONE (03:30)
[2023-02-28 03:57] VITALS: BP 142/90; TEMP 97.9; O2SAT 98
[2023-02-28 04:25] LABS: APPEARANCE, URINE CLEAR (CLEAR); BACTERIA, URINE AUTO NEGATIVE (NEGATIVE); BILIRUBIN, URINE AUTO NEGATIVE (NEGATIVE); BLOOD, URINE BLOOD NEGATIVE (NEGATIVE); COLOR, URINE YELLOW (YELLOW); GLUCOSE, URINE (UA) AUTO NEGATIVE (NEGATIVE); KETONE, URINE AUTO NEGATIVE (NEGATIVE); LEUKOCYTE ESTERASE, URINE AUTO NEGATIVE (NEGATIVE); NITRITE, URINE AUTO NEGATIVE (NEGATIVE); PROTEIN, URINE AUTO NEGATIVE (NEGATIVE); RBC, URINE AUTO 0 /HPF (0-3); SQUAMOUS EPITHELIAL CELL UR AU 0 /HPF (0-6); UROBILINOGEN, URINE AUTO 0.2 mg/dL (0.0-2.0); WBC, URINE AUTO 0 /HPF (0-3)
[2023-02-28 04:48] LABS: AMPHETAMINES LEVEL URINE NEGATIVE (NEGATIVE); BARBITURATES URINE NEGATIVE (NEGATIVE)
[2023-02-28 04:49] LABS: BENZODIAZEPINES URINE NEGATIVE (NEGATIVE); COCAINE METABOLITE URINE NEGATIVE (NEGATIVE); METHADONE URINE NEGATIVE (NEGATIVE); OPIATES URINE NEGATIVE (NEGATIVE); PHENCYCLIDINE URINE NEGATIVE (NEGATIVE)
[2023-02-28 04:51] LABS: CANNABINOIDS URINE POSITIVE (NEGATIVE)
== END 2023-02-28 04:05 | disposition home or self-care (01) ==
LOC: M ED 00:50 → EDBD 00:50 → M ED 04:05
DX: G40.909 Epilepsy, unspecified, not intractable, without status epilepticus (principal); D45 Polycythemia vera; F17.200 Nicotine dependence, unspecified, uncomplicated; F12.10 Cannabis abuse, uncomplicated; F31.9 Bipolar disorder, unspecified; Z88.6 Allergy status to analgesic agent; Z91.030 Bee allergy status; Z91.048 Other nonmedicinal substance allergy status
CPT/HCPCS: 70450; 71275; 80048; 80076; 80307; 81001; 82077; 82140; 82330; 83605; 83735; 84100; 85025; 93041; 94760; 96361; 96365; 99285; J1953; Q9967

== ENCOUNTER → 2023-03-12 | Outpatient (REF) | payer OTHER ==
[~2023-03-12] MED LIST changes: +KEPP1TAB PO
[2023-03-14 08:11] LABS: ERYTHROPOIETIN 47.8 mIU/mL (2.6-18.5)
[2023-03-14 11:00] LABS: JAK2 MUTATIONS FOR PATH SENDOU See Pathology Report
== END ==
LOC: M LABDRAWP 17:36
PROVIDERS: ATTEND Nurse Practitioner Adult Health
DX: D45 Polycythemia vera (principal)

== ENCOUNTER → 2023-05-30 | Outpatient (CLI) | payer OTHER | LOC: M RAD 08:09 | PROVIDERS: ATTEND Internal Medicine Hematology & Oncology | DX: D75.1 Secondary polycythemia (principal) ==

== ENCOUNTER 2023-08-30 15:13 | Emergency (ER) | payer OTHER ==
[2023-08-30 17:13] LABS: HEMATOCRIT 54.1 % (42.0-52.0); HEMOGLOBIN 18.6 g/dl (13.5-17.5); MEAN CORPUSCULAR HEMOGLOBIN 36.8 pg (27.0-33.0); MEAN CORPUSCULAR HGB CONC 34.4 g/dl (32.0-36.5); MEAN CORPUSCULAR VOLUME 106.9 fl (80.0-96.0); PLATELET COUNT, AUTOMATED 281 10^3/uL (150-450); RED BLOOD COUNT 5.06 10^6/uL (4.30-6.10); WHITE BLOOD COUNT 14.3 10^3/uL (4.0-10.0)
[2023-08-30 18:54] LABS: ALBUMIN 4.3 G/DL (3.2-5.2); ALKALINE PHOSPHATASE 200 U/L (46-116); ALT/SGPT 46 U/L (7.0-40); AST/SGOT 34 U/L (<34); BILIRUBIN,TOTAL 1.1 MG/DL (0.3-1.2); BLOOD UREA NITROGEN 15 MG/DL (9-23); CALCIUM LEVEL 9.2 MG/DL (8.5-10.1); CARBON DIOXIDE LEVEL 30 MMOL/L (20-31); CHLORIDE LEVEL 104 MMOL/L (98-107); CREATININE FOR GFR 1.04 MG/DL (0.70-1.30); ETHYL ALCOHOL (ETHANOL) 0.211 % (0.000-0.010); GLOMERULAR FILTRATION RATE > 60.0 (>60); GLUCOSE, FASTING 84 MG/DL (60-100); POTASSIUM SERUM 4.3 MMOL/L (3.5-5.1); SODIUM LEVEL 139 MMOL/L (136-145); THYROID STIMULATING HORMONE 1.162 uIU/ML (0.55-4.78); TOTAL PROTEIN 7.7 G/DL (5.7-8.2)
[2023-08-30 18:55] LABS: AMPHETAMINES LEVEL URINE NEGATIVE (NEGATIVE); BARBITURATES URINE NEGATIVE (NEGATIVE); BENZODIAZEPINES URINE NEGATIVE (NEGATIVE); CANNABINOIDS URINE POSITIVE (NEGATIVE); COCAINE METABOLITE URINE NEGATIVE (NEGATIVE); METHADONE URINE NEGATIVE (NEGATIVE); OPIATES URINE NEGATIVE (NEGATIVE); PHENCYCLIDINE URINE NEGATIVE (NEGATIVE)
[2023-08-30] MEDS ORDERED: LORazepam 2 MG TAB PO PRN (18:55)
[2023-08-30 19:38] LABS: SALICYLATE LEVEL < 3.0 MG/DL (<30)
[2023-08-30 20:30] VITALS: BP 128/74; TEMP 98.4; O2SAT 97
[2023-08-30] MEDS ORDERED: THIAMINE 100 MG TAB PO SCH (21:00)
[2023-08-31] MEDS ORDERED: FOLIC ACID 1MG TAB PO SCH (09:00)
[2023-08-31] MEDS ORDERED: MULTIVITAMINS/MINERALS THERAP 1 TAB PO SCH (09:00)
== END 2023-08-30 20:30 | disposition home or self-care (01) ==
LOC: M ED 15:13
DX: F32.A Depression, unspecified (principal); I10 Essential (primary) hypertension; F17.200 Nicotine dependence, unspecified, uncomplicated; F10.10 Alcohol abuse, uncomplicated; Z63.4 Disappearance and death of family member; Z79.811 Long term (current) use of aromatase inhibitors; Z79.899 Other long term (current) drug therapy

== ENCOUNTER 2024-01-10 03:35 | Emergency (ER) | payer OTHER ==
[~2024-01-10] VITALS: Ht 185.4 cm; Wt 81.2 kg
[2024-01-10 03:43] VITALS: TEMP 97.1
[2024-01-10 04:05] VITALS: BP 134/89; O2SAT 92
[2024-01-10 04:06] LABS: VENOUS HCO3 21.4 MMOL/L (23.0-27.0); VENOUS O2 SATURATION 88.2 % (60.0-80.0); VENOUS PARTIAL PRESSURE CO2 44.4 mmHg (38.0-50.0); VENOUS PARTIAL PRESSURE O2 58.9 mmHg (30.0-50.0); VENOUS PH 7.301 UNITS (7.330-7.430); VENOUS STANDARD HCO3 20.2 MMOL/L; VENOUS TOTAL CO2 22.8 MMOL/L (24.0-28.0)
[2024-01-10 04:07] LABS: IONIZED CALCIUM 4.5 MG/DL (4.5-5.3)
[2024-01-10 04:11] LABS: HEMATOCRIT 64.8 % (42.0-52.0); MEAN CORPUSCULAR HEMOGLOBIN 34.2 pg (27.0-33.0); MEAN CORPUSCULAR HGB CONC 34.1 g/dl (32.0-36.5); MEAN CORPUSCULAR VOLUME 100.2 fl (80.0-96.0); PLATELET COUNT, AUTOMATED 279 10^3/uL (150-450); RED BLOOD COUNT 6.47 10^6/uL (4.30-6.10); WHITE BLOOD COUNT 12.2 10^3/uL (4.0-10.0)
[2024-01-10 04:18] LABS: HEMOGLOBIN 22.1 g/dl (13.5-17.5)
[2024-01-10 04:35] LABS: ETHYL ALCOHOL (ETHANOL) 0.285 % (0.000-0.010)
[2024-01-10 04:37] LABS: ALBUMIN 4.2 G/DL (3.2-5.2); ALKALINE PHOSPHATASE 134 U/L (40-129); ALT/SGPT 60 U/L (7.0-40); AST/SGOT 34 U/L (<34); BILIRUBIN,DIRECT 0.2 MG/DL (<0.4); BILIRUBIN,TOTAL 0.5 MG/DL (0.3-1.2); BLOOD UREA NITROGEN 15 MG/DL (9-23); CALCIUM LEVEL 9.1 MG/DL (8.5-10.1); CARBON DIOXIDE LEVEL 24 MMOL/L (20-31); CHLORIDE LEVEL 108 MMOL/L (98-107); CREATININE FOR GFR 0.82 MG/DL (0.70-1.30); GLOMERULAR FILTRATION RATE > 60.0 (>60); GLUCOSE, FASTING 103 MG/DL (60-100); MAGNESIUM LEVEL 2.2 MG/DL (1.8-2.4); PHOSPHORUS LEVEL 4.6 MG/DL (2.5-4.9); POTASSIUM SERUM 4.4 MMOL/L (3.5-5.1); SODIUM LEVEL 141 MMOL/L (136-145); TOTAL PROTEIN 7.9 G/DL (5.7-8.2)
[2024-01-10 04:45] LABS: ANISOCYTOSIS 2+; ATYPICAL LYMPH 6 % (0-5); BASOPHILS 1 % (0-1); EOSINOPHILS 8 % (0-3); LYMPHOCYTES 38 % (16-44); MONOCYTES 6 % (0-5); NEUTROPHILS 41 % (28-66)
[2024-01-10 04:46] LABS: POIKILOCYTOSIS 1+; STOMATOCYTES 1+
[2024-01-10 04:47] LABS: AMPHETAMINES LEVEL URINE NEGATIVE (NEGATIVE); BARBITURATES URINE NEGATIVE (NEGATIVE); BENZODIAZEPINES URINE NEGATIVE (NEGATIVE); CANNABINOIDS URINE NEGATIVE (NEGATIVE); COCAINE METABOLITE URINE NEGATIVE (NEGATIVE); METHADONE URINE NEGATIVE (NEGATIVE); OPIATES URINE NEGATIVE (NEGATIVE); PHENCYCLIDINE URINE NEGATIVE (NEGATIVE)
[2024-01-10 04:47] LABS: PLATELET ESTIMATE NORMAL (NORMAL)
== END 2024-01-10 04:10 | disposition left against medical advice (07) ==
LOC: M ED 03:35
DX: Z53.21 Procedure and treatment not carried out due to patient leaving prior to being seen by health care provider (principal)